=== PATIENT | female | born 1980 | race African-American/Black ===

== ENCOUNTER 2018-07-12 14:23 | Emergency (ER) | payer OTHER, SELFPAY ==
[2018-07-12 14:47] LABS: Absolute Lymphocytes (CBC) 0.9 K/uL (0.7-4.9); Absolute Monocytes 1.1 K/uL (0.1-1.3); Absolute Neutrophil 7.4 K/uL (1.8-8.0); Basophils % 0.6 % (0-1.3); Hematocrit 39.6 % (36.0-45.0); Lymphocytes % 9.2 % (15.3-44.8); MPV 8.3 fL (7.6-11.3); Monocytes % 11.5 % (3.3-12.3); RBC Red Blood Cell Count 4.31 M/uL (3.86-4.86)
[2018-07-12] MEDS ORDERED: NA CHLORIDE 0.9% 1,000 ML ONE (14:47)
[2018-07-12 14:57] LABS: Protime INR 1.2
[2018-07-12 15:12] LABS: ALT/SGPT 23 U/L (12-78); AST/SGOT 12 U/L (15-37); Albumin 3.8 g/dL (3.4-5.0); Alkaline Phosphatase 101 U/L (45-117); BUN Blood Urea Nitrogen 8 mg/dL (7-18); Bicarbonate 23 mmol/L (21-32); Bilirubin Direct 0.1 mg/dL (0-0.2); Bilirubin Total 0.4 mg/dL (0.2-1.0); Glucose Level 102 mg/dL (74-106); Magnesium 2.1 mg/dL (1.8-2.4); NT PRO-BNP 31 pg/mL (<125); Potassium 3.7 mmol/L (3.5-5.1); Sodium Level 141 mmol/L (136-145); Troponin (Emerg Dept Use Only) < 0.02 ng/mL (0.0-0.045)
--- NOTE | 2018-07-12 16:08 | RAD REPORT ---
EXAM DESCRIPTION: RAD - Chest Single View - 07/12/2018 2:57 pm CLINICAL HISTORY: syncope Chest pain. COMPARISON: No comparisons FINDINGS: Portable technique limits examination quality. The lungs are grossly clear. The heart is normal in size. No displaced fractures. IMPRESSION: No acute intrathoracic process suspected.
--- NOTE | 2018-07-12 16:57 | ER ---
Nurse's Notes [facility] Name: Salome Roman Age: 37 yrs Sex: Female : 1980 Arrival Date: 07/12/2018 Time: 14:23 Bed 16 Private MD: Diagnosis: Syncope and collapse Presentation: 07/12 14:25 Presenting complaint: syncopal episode during ER visit with daughter. Pt reports ss feeling dizzy and the sensation that she was about to pass out when she sat on the floor, then fainted. Small laceration to L lower lip noted. small amount of bleeding noted. Transition of care: patient was not received from another setting of care. Onset of symptoms was July 12, 2018. Risk Assessment: Do you want to hurt yourself or someone else? Patient reports no desire to harm self or others. Initial Sepsis Screen: Does the patient meet any 2 criteria? No. Patient's initial sepsis screen is negative. Does the patient have a suspected source of infection? No. Patient's initial sepsis screen is negative. Care prior to arrival: None. 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 - Social history:: Smoking status: Patient/guardian denies using tobacco. - Ebola Screening: : Patient denies exposure to infectious person Patient denies travel to an Ebola-affected area in the 21 days before illness onset. Screenin:30 Abuse screen: Denies threats or abuse. Denies injuries from another. Nutritional ss screening: No deficits noted. Tuberculosis screening: Never had TB. Fall Risk Fall in past 12 months (25 points). Secondary diagnosis (15 points) syncope. No IV (0 pts). Ambulatory Aid- None/Bed Rest/Nurse Assist (0 pts). Gait- Normal/Bed Rest/Wheelchair (0 pts) Mental Status- Oriented to own ability (0 pts). Assessment: 14:25 General: Appears in no apparent distress. comfortable, Behavior is calm, cooperative. rb1 General: Reports chills for 1-2 days. Pain: Complains of pain in left lower lip Pain currently is 2 out of 10 on a pain scale. Neuro: Level of Consciousness is awake, alert, obeys commands, Oriented to person, place, time, situation, Poolroom/Poolhall Manager are equal bilaterally Moves all extremities. Gait is steady, Speech is normal, Facial symmetry appears normal, Pupils are PERRLA. Cardiovascular: Capillary refill < 3 seconds is brisk in bilateral fingers. Respiratory: Airway is patent Respiratory effort is even, unlabored, Respiratory pattern is regular, symmetrical. GI: No signs and/or symptoms were reported involving the gastrointestinal system. : No signs and/or symptoms were reported regarding the genitourinary system. Derm: Skin is dry, Skin is normal, Skin temperature is warm. Musculoskeletal: Range of motion: intact in all extremities. Injury Description: Laceration sustained to left lower lip is 0.5 to 2.5 cm long, Pt. was in her daughter's exam room when she fainted and fell biting her left lower lip when she hit the floor. was sustained less than 30 minutes ago. a small amount of bleeding noted at this time. 15:20 Reassessment: Patient appears in no apparent distress at this time. No changes from rb1 previously documented assessment. 16:20 Reassessment: Patient appears in no apparent distress at this time. Patient and/or rb1 family updated on plan of care and expected duration. Pain level reassessed. Patient is alert, oriented x 3, equal unlabored respirations, skin warm/dry/pink. Patient denies pain at this time. 17:00 Reassessment: Patient appears in no apparent distress at this time. Pt. wants to speak rb1 with the provider. Zackery notified. Vital Signs: 14:28 BP 104 / 67; Pulse 94; Resp 14; Temp 97.6(TE); Pulse Ox 97% on R/A; Weight 81.65 kg; ss Height 5 ft. 8 in. (172.72 cm); Pain 3/10; 15:30 BP 107 / 65; Pulse 96; Resp 18; Pulse Ox 98% on R/A; dh3 16:30 BP 99 / 56; Pulse 96; Resp 16; Pulse Ox 98% on R/A; dh3 17:15 BP 118 / 79; Pulse 74; Resp 16; Pulse Ox 99% ; Pain 0/10; rb1 14:28 Body Mass Index 27.37 (81.65 kg, 172.72 cm) ED Course: 14:23 Patient arrived in ED. mt 14:23 Jaspreet Vizcarra PA is PHCP. [facility] 14:23 Gaston Vazquez MD is Attending Physician. [facility] 14:25 Patient has correct armband on for positive identification. Bed in low position. Call rb1 light in reach. Side rails up X 1. Pulse ox on. NIBP on. 14:28 Triage completed. 14:28 Arm band placed on right wrist. 14:42 Inserted saline lock: 20 gauge in left antecubital area, using aseptic technique. Blood la1 collected. 14:52 Amna Strauss, RN is Primary Nurse. [facility] 14:58 XRAY Chest (1 view) In Process Unspecified. EDMS 16:56 Ac Dominguez MD is Referral Physician. m 17:25 No provider procedures requiring assistance completed. IV discontinued, intact, rb1 bleeding controlled, No redness/swelling at site. Pressure dressing applied. Administered Medications: 14:42 Drug: NS 0.9% 1000 ml Route: IV; Rate: 1000 ml; Site: left antecubital; la1 15:57 Follow up: IV Status: Completed infusion [facility] Point of Care Testing: Blood Glucose: 14:30 Blood Glucose: 109 mg/dL; Ranges: Outcome: 16:56 Discharge ordered by . [facility] 17:25 Patient left the ED. rb1 17:25 Discharged to home ambulatory, with family. rb1 17:25 Condition: stable 17:25 Discharge instructions given to patient, Instructed on discharge instructions, follow up and referral plans. medication usage, Demonstrated understanding of instructions, follow-up care, medications, Prescriptions given X 1. Signatures: Dispatcher [employer] EDMS Jaspreet Vizcarra PA PA [facility] Marisa Laws, FREIGHT SEPARATOR FREIGHT SEPARATOR mt Kathie Das RN RN aMrk So RN RN la1 Amna Strauss, IRON RN [facility] Grace Tobias 3 Corrections: (The following items were deleted from the chart) 19:57 17:47 Patient left the ED. [facility] rb1
--- NOTE | 2018-07-12 16:57 | EDPHYS ---
Physician Documentation [facility] Name: Salome Roman Age: 37 yrs Sex: Female : 1980 Arrival Date: 07/12/2018 Time: 14:23 Bed 16 Private MD: ED Physician Gaston Vazquez HPI: 07/12 14:24 This 37 yrs old Black Female presents to ER via Ambulatory with complaints of Syncope. jmm 14:24 The patient has experienced syncope, collapsed. Onset: The symptoms/episode jmm began/occurred acutely. Duration: This was a single episode, that lasted 30 second(s). Context: occurred at a hospital, occurred while the patient was sitting. Associated injury: Head/face:. Associated signs and symptoms: Pertinent negatives: chest pain, shortness of breath. This is a 37 year old female with no chronic medical conditions that presents to the ED after a syncopal episode which occurred while she was in an examination room with her daughter. The patient stated she felt hot upon entering the room. Patient took off her sweater while sitting and stated she felt like she was about to pass out. Patient then fell to her left side hitting her lip against the floor. Patient was responsive within 30 seconds. Patient denies chest pain, shortness of breath. Patient had had a mild cough for over a week. States she has not eaten today and has had similar episode when not eating. . 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 - Social history:: Smoking status: Patient/guardian denies using tobacco. - Ebola Screening: : Patient denies exposure to infectious person Patient denies travel to an Ebola-affected area in the 21 days before illness onset. ROS: 14:24 Constitutional: Negative for fever, chills, and weight loss, Cardiovascular: Negative jmm for chest pain, palpitations, and edema. 14:24 Respiratory: Positive for cough. 14:24 All other systems are negative. Exam: 14:24 Constitutional: This is a well developed, well nourished patient who is awake, alert, jmm and in no acute distress. 14:24 Neck: Trachea midline, Supple Chest/axilla: Normal chest wall appearance and motion. 14:24 Head/face: superficial lacerations noted to the left side of the lower lip. 14:24 ENT: Dental exam: normal. 14:24 Cardiovascular: Rate: normal, Rhythm: regular, Pulses: no pulse deficits are appreciated. 14:24 Respiratory: the patient does not display signs of respiratory distress, Respirations: normal, Breath sounds: are clear throughout. 14:24 Abdomen/GI: Inspection: abdomen appears normal, Bowel sounds: normal, Palpation: abdomen is soft and non-tender, in all quadrants. 14:24 Musculoskeletal/extremity: ROM: intact in all extremities. 14:24 Skin: Appearance: Color: normal in color. 14:24 Neuro: Orientation: is normal, Mentation: is normal, Memory: is normal. 14:24 Psych: Behavior/mood is pleasant, cooperative. Vital Signs: 14:28 BP 104 / 67; Pulse 94; Resp 14; Temp 97.6(TE); Pulse Ox 97% on R/A; Weight 81.65 kg; ss Height 5 ft. 8 in. (172.72 cm); Pain 3/10; 15:30 BP 107 / 65; Pulse 96; Resp 18; Pulse Ox 98% on R/A; dh3 16:30 BP 99 / 56; Pulse 96; Resp 16; Pulse Ox 98% on R/A; dh3 17:15 BP 118 / 79; Pulse 74; Resp 16; Pulse Ox 99% ; Pain 0/10; rb1 14:28 Body Mass Index 27.37 (81.65 kg, 172.72 cm) MDM: 14:25 Patient medically screened. [facility] 16:55 Data reviewed: vital signs, nurses notes, lab test result(s), EKG, radiologic studies, [facility] plain films. Counseling: I had a detailed discussion with the patient and/or guardian regarding: the historical points, exam findings, and any diagnostic results supporting the discharge/admit diagnosis, lab results, radiology results, the need for outpatient follow up, to return to the emergency department if symptoms worsen or persist or if there are any questions or concerns that arise at home. 16:56 ED course: EKG normal, h/h normal, patient is advised to follow up with cardiology for [facility] further outpatient evaluation. syncope appears to be most likely vasovagal. . 07/12 14:24 Order name: Basic Metabolic Panel; Complete Time: 15:34 [facility] 07/12 14:24 Order name: CBC with Diff; Complete Time: 15:34 [facility] 07/12 14:24 Order name: LFT's; Complete Time: 15:34 [facility] 07/12 14:24 Order name: Magnesium; Complete Time: 15:34 [facility] 07/12 14:24 Order name: NT PRO-BNP; Complete Time: 15:34 [facility] 07/12 14:24 Order name: PT-INR; Complete Time: 15:34 [facility] 07/12 14:24 Order name: Troponin (emerg Dept Use Only); Complete Time: 15:34 [facility] 07/12 14:24 Order name: XRAY Chest (1 view); Complete Time: 16:21 [facility] 07/12 14:24 Order name: EKG; Complete Time: 14:24 [facility] 07/12 14:24 Order name: Cardiac monitoring; Complete Time: 14:54 [facility] 07/12 14:24 Order name: EKG - Nurse/Tech; Complete Time: 14:33 [facility] 07/12 14:31 Order name: glucometer results - FOR PT WITH NO ID; Complete Time: 20:18 ss 07/12 15:34 Order name: Flu; Complete Time: 16:56 [facility] 07/12 14:24 Order name: IV Saline Lock; Complete Time: 14:42 [facility] 07/12 14:24 Order name: Labs collected and sent; Complete Time: 14:54 [facility] 07/12 14:24 Order name: O2 Per Protocol; Complete Time: 14:33 [facility] 07/12 14:24 Order name: O2 Sat Monitoring; Complete Time: 14:33 [facility] Administered Medications: 14:42 Drug: NS 0.9% 1000 ml Route: IV; Rate: 1000 ml; Site: left antecubital; la1 15:57 Follow up: IV Status: Completed infusion rb1 Point of Care Testing: Blood Glucose: 14:30 Blood Glucose: 109 mg/dL; Ranges: Critical Glucose Levels:Adult <50 mg/dl or >400 mg/dl <40 mg/dl or >180 mg/dl Disposition: 18:42 Co-signature as Attending Physician, Gaston Vazquez MD. rn Disposition: 07/12/18 16:56 Discharged to Home. Impression: Syncope and collapse. - Condition is Stable. - Discharge Instructions: Syncope. - Prescriptions for benzonatate 200 mg Oral Capsule - take 1 capsule by ORAL route 3 times per day as needed; 20 capsule. - Medication Reconciliation Form, Thank You Letter, Antibiotic Education, Prescription Opioid Use form. - Follow up: Ac Dominguez MD; When: 2 - 3 days; Reason: Recheck today's complaints, Continuance of care, Re-evaluation by your physician. Signatures: Dispatcher [employer] EDMS Jaspreet Vizcarra PA PA jmm Nieto, Roman, MD MD rn Smirch, Shelby, RN RN ss Mark So RN RN la1 Amna Strauss RN RN rb1 Corrections: (The following items were deleted from the chart) 17:47 16:56 07/12/2018 16:56 Discharged to Home. Impression: Syncope and collapse. Condition rb1 is Stable. Forms are Medication Reconciliation Form, Thank You Letter, Antibiotic Education, Prescription Opioid Use. Follow up: Ac Dominguez; When: 2 - 3 days; Reason: Recheck today's complaints, Continuance of care, Re-evaluation by your physician. fabi
--- NOTE | 2018-07-12 18:56 | EKG ---
Test Date: 2018-07-12 Test Time: 14:24:55 Automobile Detailer: MADALYN MEASUREMENT RESULTS: Intervals: Rate: 94 TX: 162 QRSD: 80 QT: 332 QTc: 415 [place]: P: 49 TX: 162 QRS: 57 T: 51 INTERPRETIVE STATEMENTS: Normal sinus rhythm Normal ECG Compared to ECG 03/02/2009 05:49:28 Sinus arrhythmia no longer present Electronically Signed On 07-12-18 18:54:55 PLASTICATOR by Pasha Arias
== END 2018-07-12 17:47 | disposition home or self-care (01) ==
LOC: ER 14:23
DX: R55 Syncope and collapse (principal)
CPT/HCPCS: 36415; 71045; 80048; 80076; 82962; 83735; 83880; 84484; 85025; 85610; 87804; 93005; 96360; 99284; J7030

== ENCOUNTER 2018-08-06 10:32 | Emergency (ER) | payer BC, SELFPAY ==
--- NOTE | 2018-08-06 11:54 | ER ---
Nurse's Notes [facility] Name: Salome Roman Age: 37 yrs Sex: Female : 1980 Arrival Date: 08/06/2018 Time: 10:36 Bed Waiting Private MD: Diagnosis: Presentation: 08/06 10:40 Presenting complaint: Patient states: Friday or so I had chest tightness, i was at work tw2 but i had a class and i didn't lift anything. Transition of care: patient was not received from another setting of care. Onset of symptoms was August 06, 2018. Risk Assessment: Do you want to hurt yourself or someone else? Patient reports no desire to harm self or others. Initial Sepsis Screen: Does the patient meet any 2 criteria? No. Patient's initial sepsis screen is negative. Does the patient have a suspected source of infection? No. Patient's initial sepsis screen is negative. Care prior to arrival: None. 10:40 Method Of Arrival: Ambulatory tw2 10:40 Acuity: RUBY 3 tw2 Triage Assessment: 10:43 General: Appears in no apparent distress. well groomed, Behavior is anxious, crying, pt tw2 states "i am scared", pt encouraged. Pain: Complains of pain in chest. Cardiovascular: Reports chest pain. 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 - Social history:: Smoking status: Patient/guardian denies using tobacco. - Ebola Screening: : Patient denies travel to an Ebola-affected area in the 21 days before illness onset. Screenin:44 Abuse screen: Denies threats or abuse. Nutritional screening: No deficits noted. tw2 Tuberculosis screening: No symptoms or risk factors identified. Fall Risk None identified. Assessment: 11:51 Reassessment: pt states "i will just try back another day". tw2 Vital Signs: 10:41 BP 126 / 92; Pulse 119; Resp 18; Temp 99.5(O); Pulse Ox 99% on R/A; Pain 0/10; tw2 10:44 Pulse 102; tw2 10:41 but when it comes its like a 01/20 tw2 10:44 upper cutter out Jessica performing EKG at this time. tw2 ED Course: 10:36 Patient arrived in ED. mr 10:41 Triage completed. tw2 10:43 Arm band placed on. tw2 10:44 Patient maintains SpO2 saturation greater than 95% on room air. tw2 10:52 EKG done, by motorsports technician. reviewed by Vinayak Chopra MD. at1 Administered Medications: No medications were administered Outcome: 11:52 Eloped from waiting room, post triage evaluation and consult. "i will just try back tw2 another day" Time discovered patient gone: August 06, 2018 at 11:52 11:53 Patient left the ED. tw2 Signatures: Annamarie Prater mr DukesJessica, upper cutter out EKG Tat1 Karen Felix, RN RN tw2
--- NOTE | 2018-08-06 16:49 | EKG ---
Test Date: 2018-08-06 Test Time: 10:45:16 Service Writer Advisor: JENIFFER MEASUREMENT RESULTS: Intervals: Rate: 87 IA: 138 QRSD: 78 QT: 338 QTc: 406 [place]: P: 67 IA: 138 QRS: 49 T: 53 INTERPRETIVE STATEMENTS: Normal sinus rhythm with sinus arrhythmia Normal ECG Compared to ECG 07/12/2018 14:24:55 No significant changes Electronically Signed On 08-06-18 16:48:26 OIL AND GAS FIELD TECHNICIAN by Ac Dominguez
== END 2018-08-06 11:53 | disposition left against medical advice (07) ==
LOC: ER 10:32
DX: R07.89 Other chest pain (principal); Z53.29 Procedure and treatment not carried out because of patient's decision for other reasons
CPT/HCPCS: 93005; 99284